=== PATIENT | female | born 1990 | race Caucasian/White ===

== ENCOUNTER → 2018-04-06 08:59 | Outpatient (CLI) | payer OTHER, SELFPAY ==
--- NOTE | 2018-04-06 09:00 | DI.RAD.S_ITS ---
PROCEDURE: XR FOOT RT MIN 3V INDICATIONS: Crush injury R foot TECHNIQUE: 3 views of the foot were acquired. COMPARISON: None. FINDINGS: Bones: No fractures or dislocations. No suspicious bony lesions. Soft tissues: No tibiotalar joint effusion. Achilles tendon appears normal. IMPRESSION: No gross acute right foot fracture or dislocation. Dictated by: Shane Carlos M.D. on 04/06/2018 at 9:26 Approved by: Shane Carlos M.D. on 04/06/2018 at 9:26
== END ==
PROVIDERS: Visit Provider Physician Assistant
DX: S97.81XA Crushing injury of right foot, initial encounter (principal)
CPT/HCPCS: 73630